=== PATIENT | female | born 1945 | race Caucasian/White ===

== ENCOUNTER → 2016-08-03 | Outpatient (CLI) | payer OTHER ==
[~2016-08-03] MED LIST: ANCEF 1 GM/1 G/50 ML IV; ASPIRIN CHEWABL81 MG PO; BUMEX 1MG TABLET1 MG PO; CIPRO500 MG PO; DOXYCYCLINE HY100 M2 PO; IRON325 M1 PO; LORTAB 7.5-3251 EACH PO; MORPHINE SULFAT15 M1 PO; MULTIVITAMINS1 EAC1 PO; NEURONTIN 400400 MG PO; NORVASC 5 MG TAB5 MG PO; OMEPRAZOLE40 MG PO; PRAVASTATIN SOD40 MG PO; REGLAN10 MG PO; ROPINIROLE HCL1 MG PO; VITAMIN B-1000 MCG/M IM; VITAMIN C 500500 MG PO; WELLBUTRIN SR150 M1 PO; ZANTAC 150 MG150 MG PO; ZOFRAN4 MG PO
== END ==
LOC: KOH-I 14:30
DX: M86.171 Other acute osteomyelitis, right ankle and foot (principal); M86.8X7 Other osteomyelitis, ankle and foot
CPT/HCPCS: 73718

== ENCOUNTER → 2016-08-16 | Outpatient (CLI) | payer OTHER | LOC: NM 07:30 | DX: M86.171 Other acute osteomyelitis, right ankle and foot (principal); R93.7 Abnormal findings on diagnostic imaging of other parts of musculoskeletal system | CPT/HCPCS: 78805; A9569 ==

== ENCOUNTER → 2016-09-16 | Outpatient (CLI) | payer OTHER | LOC: MAMO 13:57 | DX: Z12.31 Encounter for screening mammogram for malignant neoplasm of breast (principal); G71.0 Muscular dystrophy; M79.602 Pain in left arm; M25.512 Pain in left shoulder; N64.4 Mastodynia; A52.16 Charcot's arthropathy (tabetic); Z74.09 Other reduced mobility | CPT/HCPCS: G0202 ==